=== PATIENT | female | born 1975 | race Hispanic/Latino ===

== ENCOUNTER 2020-12-22 13:11 | Emergency (ER) | payer BC, SELFPAY ==
[2020-12-22 18:37] LABS: Urine Blood Negative (Negative); Urine Glucose Negative (Negative); Urine Protein Negative (Negative); Urine Specific Gravity 1.025 (1.005-1.030)
[2020-12-22] MEDS ORDERED: KETOROLAC 30 MG/ML INJ ONE (18:43)
[2020-12-22] MEDS ORDERED: NA CHLORIDE 0.9% 1,000 ML ONE (18:43)
[2020-12-22] MEDS ORDERED: ONDANSETRON 4 MG/2 ML VIAL ONE (18:43)
[2020-12-22 18:54] LABS: ALT/SGPT 49 U/L (12-78); AST/SGOT 38 U/L (15-37); Albumin 3.9 g/dL (3.4-5.0); Alkaline Phosphatase 95 U/L (45-117); BUN Blood Urea Nitrogen 11 mg/dL (7-18); Bicarbonate 30 mmol/L (21-32); Bilirubin Direct 0.1 mg/dL (0-0.2); Bilirubin Total 0.4 mg/dL (0.2-1.0); Glucose Level 92 mg/dL (74-106); Lipase 185 U/L (73-393); Potassium 3.3 mmol/L (3.5-5.1); Protein, Total 8.1 g/dL (6.4-8.2); Sodium Level 141 mmol/L (136-145)
[2020-12-22 19:12] LABS: Absolute Lymphocytes (CBC) 1.7 K/uL (0.7-4.9); Basophils % 1.5 % (0-1.3); Lymphocytes % 42.5 % (15.3-44.8); MPV 10.6 fL (7.6-11.3); RBC Red Blood Cell Count 4.62 M/uL (3.86-4.86)
--- NOTE | 2020-12-22 19:19 | RAD REPORT ---
EXAM DESCRIPTION: CT - Abdomen Pelvis W Contrast - 12/22/2020 7:07 pm CLINICAL HISTORY: ABD PAIN COMPARISON: No comparisons TECHNIQUE: Biphasic, helical CT imaging of the abdomen and pelvis was performed following 100 ml non -ionic IV contrast. No oral contrast administered. All CT scans are performed using dose optimization technique as appropriate and may include automated exposure control or mA/KV adjustment according to patient size. FINDINGS: No suspicious findings in the lung bases. The liver, spleen, and pancreas show no suspicious focal findings. Liver shows mild diffuse fatty inf iltration pattern. Gallbladder and biliary tree are also without suspicious finding. Symmetric renal function is seen with no hydronephrosis or suspicious renal mass. No pyelonephritis o r acute parenchymal process. No bladder abnormalities. No adrenal abnormalities. No uterine abnormali ty seen. Tubal ligation clips are present. Right ovary is unremarkable. Left ovary contains a 3 centi meter cyst. No cyst rupture or hemorrhage findings. Characteristics not suspicious. No stomach or small bowel abnormality seen. Patient has a prominent fatty ileocecal valve. Appendix i s normal. Sigmoid diverticulosis is present without diverticulitis. No free air, free fluid or infla mmatory stranding. No hernia, mass or bulky lymphadenopathy. No suspicious bony findings. IMPRESSION: Mild sigmoid diverticulosis without diverticulitis findings. No acute GI process identif iable. Patient has a 3 centimeter left ovarian cyst but no rupture or hemorrhage findings. Mild diffuse fatty infiltration of the liver.
[2020-12-22 19:21] LABS: Urine Specific Gravity/Preg 1.025 (1.005-1.030)
[2020-12-22 20:23] LABS: Platelet Estimate DECR
[2020-12-22 20:24] LABS: Blood Morphology Comment NOTED (NOT SEEN)
[2020-12-22 20:25] LABS: Anisocytosis 2+; Hypochromasia 3+; Poikilocytosis 2+; Polychromasia SLIGHT; Target Cells FEW
[2020-12-22 20:26] LABS: Ovalocytes 1+; Teardrop Cell 1+
[2020-12-22] MEDS ORDERED: NA CHLORIDE 0.9% 250 ML ONE (22:05)
--- NOTE | 2020-12-22 22:28 | EDPHYS ---
Physician Documentation [facility] Name: Leatha Arroyo Age: 45 yrs Sex: Female : 1975 Arrival Date: 12/22/2020 Time: 13:14 Bed 24 Private MD: ED Physician Roney Fuentes HPI: 12/22 23:47 This 45 yrs old Female presents to ER via Ambulatory with complaints of kb Abdominal Pain. 23:47 The patient has not experienced similar symptoms in the past. The patient has not kb recently seen a physician. 12/23 00:02 The patient presents with abdominal pain in the left lower quadrant. Onset: The kb symptoms/episode began/occurred 1 week(s) ago. The symptoms do not radiate. Associated signs and symptoms: none. The symptoms are described as constant. Modifying factors: The symptoms are alleviated by nothing, the symptoms are aggravated by nothing. Severity of pain: At its worst the pain was moderate in the emergency department the pain. Pt presents for LLQ pain that started a week ago. States she has had intermittent shortness of breath and she gets fatigued easily for a long time. Reports history of anemia and multiple transfusions so she wanted to get her levels checked as well. Historical: - Allergies: 12/22 13:20 No Known Allergies; ll1 - PMHx: 13:20 intestinal infection, anemia; enlarged heart; ll1 - PSHx: 13:20 ; ll1 - Immunization history:: Client reports receiving the 2nd dose of the Covid vaccine, Flu vaccine is not up to date. - Social history:: Smoking status: Patient reports the use of cigarette tobacco products, denies chronic smoking, but will smoke occasionally. ROS: 12/23 00:02 Constitutional: Negative for fever, chills, and weight loss. kb Respiratory: Positive for dyspnea on exertion. Abdomen/GI: Positive for abdominal pain. All other systems are negative. Exam: 12/22 23:39 Constitutional: This is a well developed, well nourished patient who is awake, alert, kb and in no acute distress. Head/Face: Normocephalic, atraumatic. Cardiovascular: Regular rate and rhythm with a normal S1 and S2. No gallops, murmurs, or rubs. No pulse deficits. Respiratory: Respirations even and unlabored. No increased work of breathing, no retractions or nasal flaring. Skin: Warm, dry with normal turgor. Normal color. MS/ Extremity: Pulses equal, no cyanosis. Neurovascular intact. Full, normal range of motion. Neuro: Awake and alert, GCS 15, oriented to person, place, time, and situation. Moves all extremities. Normal gait. Psych: Awake, alert, with orientation to person, place and time. Behavior, mood, and affect are within normal limits. Abdomen/GI: Inspection: abdomen appears normal, Bowel sounds: normal, in all quadrants, Palpation: soft, in all quadrants, moderate abdominal tenderness, in the left lower quadrant. Vital Signs: 13:16 BP 147 / 80; Pulse 77; Resp 17; Temp 97.1; Pulse Ox 99% ; Weight 113.4 kg; Height 5 ft. ll1 6 in. (167.64 cm); Pain 5/10; 19:44 BP 128 / 69; Pulse 66; Resp 17 S; Pulse Ox 99% on R/A; ad5 20:36 BP 117 / 74; Pulse 64; Resp 16 S; Pulse Ox 96% on R/A; ad5 22:00 BP 109 / 71; Pulse 63; Resp 16; Pulse Ox 97% on R/A; ad5 23:00 BP 112 / 70; Pulse 65; Resp 16 S; Pulse Ox 96% on R/A; ad5 13:16 Body Mass Index 40.35 (113.40 kg, 167.64 cm) ll1 MDM: 17:36 Patient medically screened. kb 19:49 Data reviewed: vital signs, nurses notes. Data reviewed: I have discussed the patient's kb presentation/case with the attending Emergency Department Physician;. Data interpreted: Pulse oximetry: on room air is 99 %. Interpretation: normal. Counseling: I had a detailed discussion with the patient and/or guardian regarding: the historical points, exam findings, and any diagnostic results supporting the discharge/admit diagnosis, lab results, radiology results, the need for outpatient follow up, an OB/Gyne specialist, to return to the emergency department if symptoms worsen or persist or if there are any questions or concerns that arise at home. ED course: Pt states she does not know why she has chronic anemia, no one ever found out. Pt attests to having very heavy periods every month. Educated to follow up with [facility] about cyst and heavy menstrual cycles for intervention if needed. Pt has no active bleeding now, including vaginal bleeding, guiac stool negative. Pt reports she is easily fatigued with intermittent shortness of breath that has been going on for a long time. Pt does not have a PCP. 1 unit of blood ordered to be given prior to discharge. Pt to follow up with [facility], list of PCP in area given. 12/22 17:41 Order name: Basic Metabolic Panel kb 12/22 17:41 Order name: CBC with Diff kb 12/22 17:41 Order name: Hepatic Function; Complete Time: 18:56 kb 12/22 17:41 Order name: Lipase; Complete Time: 18:56 kb 12/22 17:41 Order name: Basic Metabolic Panel; Complete Time: 18:56 EDMS 12/22 17:41 Order name: CBC with Automated Diff; Complete Time: 20:32 EDMS 12/22 18:37 Order name: Urine Dipstick-Ancillary; Complete Time: 18:40 EDMS 12/22 19:11 Order name: Urine --Ancillary (enter results) tt3 12/22 19:12 Order name: Urine --Ancillary; Complete Time: 19:22 EDMS 12/22 19:46 Order name: Type And Screen kb 12/22 20:24 Order name: Manual Differential; Complete Time: 20:32 EDMS 12/22 20:27 Order name: PRBC kb 12/22 20:27 Order name: Guiac kb 12/22 17:41 Order name: IV Saline Lock; Complete Time: 18:30 kb 12/22 17:41 Order name: Labs collected and sent; Complete Time: 18:43 kb 12/22 17:41 Order name: Urine Dipstick-Ancillary (obtain specimen); Complete Time: 18:43 kb 12/22 17:41 Order name: CT Abd/Pelvis - IV Contrast Only; Complete Time: 19:22 kb 12/22 20:37 Order name: Packed RBC Leukored EDMS Administered Medications: 18:42 Drug: Zofran (Ondansetron) 4 mg Route: IVP; Site: left antecubital; tr6 22:29 Follow up: Response: No adverse reaction; Nausea is decreased ad5 18:42 Drug: TORadol - (ketorolac) 15 mg Route: IVP; Site: left antecubital; tr6 22:29 Follow up: Response: No adverse reaction; Pain is decreased ad5 18:43 Drug: NS 0.9% 1000 ml Route: IV; Rate: 1000 ml; Site: left antecubital; tr6 20:00 Follow up: IV Status: Completed infusion; IV Intake: 1000ml ad5 Disposition: 12/22/20 22:27 Discharged to Home. Impression: Unspecified ovarian cysts, Anemia, unspecified. - Condition is Stable. - Discharge Instructions: Ovarian Cyst, [id number]. - Prescriptions for Diclofenac Sodium 75 mg Oral Tablet, Delayed Release (E.C.) - take 1 tablet by ORAL route 2 times per day As needed; 30 tablet. - Medication Reconciliation Form, Thank You Letter, Antibiotic Education, Prescription Opioid Use form. - Follow up: Emergency Department; When: As needed; Reason: Worsening of condition. Follow up: Private Physician; When: 2 - 3 days; Reason: Recheck today's complaints, Continuance of care, Re-evaluation by your physician. Addendum: 12/27/2020 07:05 Co-signature as Attending Physician, Roney Fuentes MD. r n Signatures: Dispatcher [employer] EDMA Mary Carmen Griffith, [facility] NURSE-C [facility] [employer]ACT[facility] NURSE-Ckb Roney Fuentes MD MD rn Lewis, Lynsay, RN RN ll1 Eliana Cohen RN RN tr6 Omar Cote ad5 Corrections: (The following items were deleted from the chart) 12/22 20:30 20:28 Packed RBC Leukored ordered. [facility] 20:30 20:28 ABO/RH typing ordered. [facility] 20:30 20:28 Antibody Screen ordered. [facility] 12/23 00:18 12/22 22:27 12/22/2020 22:27 Discharged to Home. Impression: Unspecified ovarian cysts; ad5 Anemia, unspecified. Condition is Stable. Forms are Medication Reconciliation Form, Thank You Letter, Antibiotic Education, Prescription Opioid Use. Follow up: Emergency Department; When: As needed; Reason: Worsening of condition. Follow up: Private Physician; When: 2 - 3 days; Reason: Recheck today's complaints, Continuance of care, Re-evaluation by your physician. kb
--- NOTE | 2020-12-22 22:28 | ER ---
Nurse's Notes [facility] Name: Leatha Arroyo Age: 45 yrs Sex: Female : 1975 Arrival Date: 12/22/2020 Time: 13:14 Bed 24 Private MD: Diagnosis: Unspecified ovarian cysts;Anemia, unspecified Presentation: 12/22 13:16 Chief complaint: Patient states: LLQ abd pain since Saturday. + nausea. No fever. SOB, ll1 fatigues easily, weakness. States she has had anemia before and has had blood transfusions. Coronavirus screen: Client denies travel out of the [place] in the last 14 days. At this time, the client does not indicate any symptoms associated with coronavirus-19. Ebola Screen: Patient denies travel to an Ebola-affected area in the 21 days before illness onset. Initial Sepsis Screen: Does the patient meet any 2 criteria? No. Patient's initial sepsis screen is negative. Does the patient have a suspected source of infection? Yes: Acute abdominal pain. Risk Assessment: Do you want to hurt yourself or someone else? Patient reports no desire to harm self or others. Onset of symptoms was December 20, 2020. 13:16 Method Of Arrival: Ambulatory ll1 13:16 Acuity: EVELYNE 3 ll1 Historical: - Allergies: 13:20 No Known Allergies; ll1 - PMHx: 13:20 intestinal infection, anemia; enlarged heart; ll1 - PSHx: 13:20 ; ll1 - Immunization history:: Client reports receiving the 2nd dose of the Covid vaccine, Flu vaccine is not up to date. - Social history:: Smoking status: Patient reports the use of cigarette tobacco products, denies chronic smoking, but will smoke occasionally. Screenin:55 Abuse screen: Denies threats or abuse. Denies injuries from another. Nutritional tr6 screening: No deficits noted. Tuberculosis screening: No symptoms or risk factors identified. Fall Risk None identified. Assessment: 18:54 General: Appears in no apparent distress. comfortable, well groomed, Behavior is calm, tr6 cooperative, appropriate for age. Pain: Complains of pain in LLQ pain since saturday. Neuro: No deficits noted. Cardiovascular: No deficits noted. Respiratory: No deficits noted. GI: Bowel sounds present X 4 quads. Abdomen is tender to palpation c/o LLQ pain since Saturday. pt states she had a moment of nausea last night. : No deficits noted. EENT: No deficits noted. Derm: No deficits noted. Musculoskeletal: No deficits noted. 19:25 Reassessment: Patient and/or family updated on plan of care and expected duration. Pain ad5 level reassessed. Patient is alert, oriented x 3, equal unlabored respirations, skin warm/dry/pink. Received care of pt at this time. Pt resting comfortably in stretcher, resp even/unlabored. Pt reports improvement in s/s, states mild pain to LLQ. VSS, NAD noted, will continue to monitor. Patient states feeling better. Neuro: No deficits noted. Level of Consciousness is awake, alert, obeys commands, Oriented to person, place, time, situation, Appropriate for age. Cardiovascular: No deficits noted. Heart tones present Capillary refill < 3 seconds Patient's skin is warm and dry. Rhythm is regular. Respiratory: No deficits noted. Airway is patent Respiratory effort is even, unlabored, Respiratory pattern is regular, symmetrical. GI: Abdomen is round Bowel sounds present X 4 quads. Reports lower abdominal pain. : No deficits noted. 20:36 Reassessment: Patient appears in no apparent distress at this time. No changes from ad5 previously documented assessment. Patient and/or family updated on plan of care and expected duration. Pain level reassessed. Patient is alert, oriented x 3, equal unlabored respirations, skin warm/dry/pink. 21:30 Reassessment: Patient appears in no apparent distress at this time. No changes from ad5 previously documented assessment. Patient and/or family updated on plan of care and expected duration. Pain level reassessed. Patient is alert, oriented x 3, equal unlabored respirations, skin warm/dry/pink. 22:30 Reassessment: Patient appears in no apparent distress at this time. No changes from ad5 previously documented assessment. Patient and/or family updated on plan of care and expected duration. Pain level reassessed. Patient is alert, oriented x 3, equal unlabored respirations, skin warm/dry/pink. Patient states feeling better. 23:30 Reassessment: Patient appears in no apparent distress at this time. No changes from ad5 previously documented assessment. Pt denies new or worsening c/o. Denies s/s of transfusion reaction, none noted. Resp even/unlabored, VSS. NAD noted. Vital Signs: 13:16 BP 147 / 80; Pulse 77; Resp 17; Temp 97.1; Pulse Ox 99% ; Weight 113.4 kg; Height 5 ft. ll1 6 in. (167.64 cm); Pain 5/10; 19:44 BP 128 / 69; Pulse 66; Resp 17 S; Pulse Ox 99% on R/A; ad5 20:36 BP 117 / 74; Pulse 64; Resp 16 S; Pulse Ox 96% on R/A; ad5 22:00 BP 109 / 71; Pulse 63; Resp 16; Pulse Ox 97% on R/A; ad5 23:00 BP 112 / 70; Pulse 65; Resp 16 S; Pulse Ox 96% on R/A; ad5 13:16 Body Mass Index 40.35 (113.40 kg, 167.64 cm) ll1 ED Course: 13:14 Patient arrived in ED. as 13:19 Triage completed. ll1 13:21 Arm band placed on. ll1 17:35 Patient placed in an exam room, on a stretcher. aa5 17:36 Mary Carmen Griffith FNP-C [facility]. kb 17:36 Roney Fuentes MD is Attending Physician. kb 17:45 Eliana Cohen RN is Primary Nurse. tr6 18:31 No provider procedures requiring assistance completed. Inserted saline lock: 20 gauge tr6 in left antecubital area, using aseptic technique. 18:55 Patient has correct armband on for positive identification. Fall risk band placed. tr6 Placed in gown. Bed in low position. Call light in reach. Side rails up X 1. 19:06 CT Abd/Pelvis - IV Contrast Only In Process Unspecified. EDMS 19:50 Consent for blood and/or blood product transfusion explained by physician, signed by ad5 parent. 21:30 Door closed. Noise minimized. Warm blanket given. ad5 23:40 IV discontinued, intact, bleeding controlled, No redness/swelling at site. Pressure ad5 dressing applied. Administered Medications: 18:42 Drug: Zofran (Ondansetron) 4 mg Route: IVP; Site: left antecubital; tr6 22:29 Follow up: Response: No adverse reaction; Nausea is decreased ad5 18:42 Drug: TORadol - (ketorolac) 15 mg Route: IVP; Site: left antecubital; tr6 22:29 Follow up: Response: No adverse reaction; Pain is decreased ad5 18:43 Drug: NS 0.9% 1000 ml Route: IV; Rate: 1000 ml; Site: left antecubital; tr6 20:00 Follow up: IV Status: Completed infusion; IV Intake: 1000ml ad5 Medication: 23:34 Blood products: PRBCs X 1 unit given. ad5 Intake: 20:00 IV: 1000ml; Total: 1000ml. ad5 Outcome: 22:27 Discharge ordered by . kb 23:40 Discharged to home ambulatory. ad5 23:40 Condition: stable 23:40 Discharge instructions given to patient, Instructed on discharge instructions, follow up and referral plans. medication usage, Demonstrated understanding of instructions, follow-up care, medications. 12/23 00:18 Patient left the ED. ad5 Signatures: Dispatcher [employer] EDMS Mary Carmen Griffith, SHAGUFTA PÉREZ-Sharri Conner Audri RN RN aa5 Lucia Elkins RN RN ll1 Eliana Cohen RN RN tr6 Omar Cote ad5 Corrections: (The following items were deleted from the chart) 12/22 19:44 19:25 GI: Abdomen is flat, Bowel sounds present X 4 quads. Reports lower abdominal ad5 pain, ad5
[2020-12-23 00:42] VITALS: TEMP 97.1
[2020-12-23 00:48] VITALS: BP 112/70; O2SAT 96
== END 2020-12-23 00:18 | disposition home or self-care (01) ==
LOC: ER 13:11
PROC: 30233N1 Transfusion of Nonautologous Red Blood Cells into Peripheral Vein, Percutaneous Approach (ICD-10-PCS; principal; 2020-12-23)
DX: D64.9 Anemia, unspecified (principal); N83.209 Unspecified ovarian cyst, unspecified side; F17.210 Nicotine dependence, cigarettes, uncomplicated
CPT/HCPCS: 36415; 36430; 74177; 80048; 80076; 81003; 81025; 83690; 85025; 86850; 86900; 86901; 96361; 96374; 96375; 99284; J2405; J7030; J7050; P9016; Q9967